=== PATIENT | male | born 1985 | race Caucasian/White ===

== ENCOUNTER 2021-03-29 22:37 | Emergency (ER) | payer OTHER, SELFPAY ==
[2021-03-29 22:44] VITALS: BP 150/100; PULSE 89; O2SAT 99; BMI 26.6
--- NOTE | 2021-03-29 22:44 | ED.ALCOHOL ---
HPI - Alcohol General Chief Complaint: ETOH/Substance Use Stated Complaint: etoh Time Seen by Provider: 03/29/21 22:44 Source: patient Mode of arrival: EMS Limitations: other (ETOH intoxication) History of Present Illness MD complaint: alcohol dependence Last drink: Hours (ago) Chronic alcohol use: Yes (recent relapse) Previous visits for alcohol intoxication: No Recent trauma: No Associated symptoms: denies other symptoms Treatments prior to arrival: none Related Data Allergies Allergy/AdvReac Type Severity Reaction Status Date / Time No Known Allergies Allergy Verified 03/29/21 22:45 Review of Systems Review of Systems: Constitutional : No Fever, No Chills, Cardiovascular : No Chest Pain, No SOB Respiratory : No Dyspnea Gastrointestinal : No abdominal pain Musculoskeletal : No Joint Swelling Skin : No rash, no skin laceration Neuro : No Weakness, No Numbness Psych : No SI/HI PMFSH Past Medical History Attestation statement: The following information was validated with the patient. Medical History Alcohol abuse Social History Social History (Updated 03/29/21 @ 23:00 by Kristine Romo DO) Alcohol intake: current Patient Tobacco Use Status: Tobacco use Unknown Advance Directives: No Physical Exam ED Vital Signs: BMI result Body Mass Index 26.6 Appearance: Alert. Oriented X3. No acute distress. Eyes: Pupils equal, round and reactive to light. ENT: Pharynx normal. Neck: Normal inspection. Neck supple. CVS: Normal heart rate and rhythm. Pulses normal. Respiratory: No respiratory distress. Breath sounds normal. Abdomen: Soft and non-tender. Skin: Skin warm and dry. Normal skin color. Normal skin turgor. Extremities: No lower extremity edema. No calf ttp Neuro: Oriented X 3. No motor deficit. No sensory deficit. Steady gait MDM - Alcohol MDM Narrative Medical decision making narrative: 35 yo male with hx of alcoholism went to [facility] considering detox - no SI changed his mind was going to leave and police showed up. He was not in a car or driving per reports but his breathalyzer was over the limit brought to ED in his words either the hospital or to retirement. At this time he is alert and oriented x 3 GCS 15 steady gait - he has no SI I cannot keep him here and his plan is to Uber home and his roommate lives there. Stable for DC Discharge Plan Discharge Clinical Impression: Alcohol abuse Patient Disposition: Home, Self-Care Instructions: Abuse of Alcohol (ED) Additional Instructions: return to ED for any worsening symptoms or concerns please consider detox
--- NOTE | 2021-03-29 23:13 | PC.NURSE ---
I did not witness the discharged of this pt. he was discharged by hemalatha donis RN
== END 2021-03-29 23:16 | disposition home or self-care (01) ==
PROVIDERS: Emergency Provider Emergency Medicine
DX: F10.10 Alcohol abuse, uncomplicated (principal); Y90.9 Presence of alcohol in blood, level not specified
CPT/HCPCS: 99282; 99283